=== PATIENT | male | born 1980 | race Caucasian/White ===

== ENCOUNTER 2019-08-24 11:12 | Outpatient (CLI) | payer OTHER, SELFPAY ==
[2019-08-24 11:52] LABS: Basophils Percent Auto 0.9 % (0.2-1.2); Eosinophils Absolute Auto 0.2 K/mm3 (0-0.3); Eosinophils Percent Auto 4.7 % (0-4.4); Hematocrit 44.6 % (42.0-52.0); Hemoglobin 15.1 g/dL (14.0-18.0); Immature Granulocyte Absolute 0.02 K/mm3 (0.00-0.031); Immature Granulocyte Percent A 0.5 % (0-0.5); Lymphocytes Absolute Auto 1.29 K/mm3 (0.9-3.2); Lymphocytes Percent Auto 30.3 % (18.3-44.2); Mean Corpuscular HGB Conc 33.9 g/dl (32-36); Mean Corpuscular Hemoglobin 31.2 pg (26-34); Mean Corpuscular Volume 92.1 fl (80-100); Mean Platelet Volume 10.2 fl (7.4-10.4); Monocytes Absolute Auto 0.3 K/mm3 (0.1-0.6); Monocytes Percent Auto 7.5 % (2.6-8.5); Neutrophils Absolute Auto 2.4 K/mm3 (1.3-6.7); Neutrophils Percent Auto 56.1 % (45.5-73.1); Platelet Count Result 217 k/mm3 (150-375); Red Blood Count 4.84 M/mm3 (4.6-6.20); Red Cell Distribution Width 12.1 % (11.5-14.5); White Blood Count 4.3 K/mm3 (4.5-10.0)
[2019-08-24 12:03] LABS: Alanine Aminotransferase 19 U/L (4-50); Albumin Level 4.8 g/dL (3.5-5.1); Alkaline Phosphatase 42 U/L (38-126); Aspartate Amino Transferase 29 U/L (17-59); Bilirubin,Total 0.6 mg/dL (0.2-1.3); Blood Urea Nitrogen 18 mg/dL (9-20); Calcium 9.6 mg/dL (8.4-10.2); Carbon Dioxide 31 mmol/L (22-30); Chloride 100 mmol/L (98-107); Cholesterol 248 mg/dL (0-200); Estimated Glomerular Filt Rate > 60; Glucose 106 mg/dL (75-110); HDL Direct 63 mg/dL; Potassium 4.5 mmol/L (3.4-5.0); Sodium 137 mmol/L (137-145); Triglycerides 83 mg/dL (<150)
[2019-08-24 12:14] LABS: LDL Cholesterol Direct 154 mg/dL
[2019-08-24 12:21] LABS: Add Urine Microscopic? NO; Appearance Urine Clear (Clear); Bilirubin Urine Negative (Negative); Blood Urine Negative (Negative); Color Urine Colorless (Yellow); Glucose Urine UA Negative (Negative); Ketones Urine Negative (Negative); Leukocyte Esterase Ur Negative LEU/UL (NEGATIVE); Nitrate Urine Negative (Negative); Protein Urine Negative (Negative); Specific Grav Ur 1.005 (1.001-1.035); Urobilinogen Urine Negative mg/dL (<2.0)
[2019-08-30 21:43] LABS: Lactoferrin, Stool Negative (Negative)
== END 2019-08-24 11:13 | disposition home or self-care (01) ==
PROVIDERS: PCP Internal Medicine; Visit Provider Internal Medicine
DX: K52.9 Noninfective gastroenteritis and colitis, unspecified (principal); R10.31 Right lower quadrant pain; Z83.438 Family history of other disorder of lipoprotein metabolism and other lipidemia
CPT/HCPCS: 36415; 80053; 80061; 81003; 83630; 85025; 87015; 87045; 87046; 87177; 87209; 87269; 87272; 87427

== ENCOUNTER 2019-08-28 06:23 | Outpatient (CLI) | payer OTHER, SELFPAY ==
[2019-08-28 18:34] LABS: SARS-CoV-2 RNA PCR Negative
== END 2019-08-28 06:24 | disposition home or self-care (01) ==
LOC: ANHCOVIDDT 06:23
PROVIDERS: PCP Internal Medicine; Visit Provider Internal Medicine Gastroenterology
DX: Z01.818 Encounter for other preprocedural examination (principal); Z11.59 Encounter for screening for other viral diseases
CPT/HCPCS: 87635; C9803; U0003

== ENCOUNTER 2019-08-30 03:06 | Day surgery (SDC) | payer OTHER, SELFPAY ==
[2019-08-27 10:04] VITALS: BMI 28.4
[2019-08-30 08:26] VITALS: BP 143/86; PULSE 76; RESP 16; TEMP 36.7; O2SAT 100
[2019-08-30] MEDS: LACTATED RINGERS 1,000 ML 150 ML IV CONT (08:28)
--- NOTE | 2019-08-30 08:40 | WPDANESEPPF ---
Anes - Initial Pre Proc Eval Procedure: Operation Date: 08/30/19 09:00 Proposed Procedures p Colonoscopy - Nico Roberts MD Date/Time: 08/30/19 08:40 Surgeon: Nico Roberts MD Pre Op Diagnosis: colitis Patient Data Age: 39 Gender: M Height: 5 ft 10 in Weight: 87.2 kg Last Vital Signs Temp 36.7 C 08/30/19 08:26 Pulse 76 08/30/19 08:26 Resp 16 08/30/19 08:26 BP 143/86 H 08/30/19 08:26 Pulse Ox 100 08/30/19 08:26 Allergies Allergy/AdvReac Type Severity Reaction Status Date / Time No Known Allergies Allergy Other Uncoded 08/30/19 08:25 Home Medications Medication Instructions Recorded Confirmed Type albuterol sulfate 90 mcg/actuation 1 puff INHALATION Q4H PRN 08/21/19 08/27/19 History aerosol inhaler Patient hx anesthesia problems: none Family hx anesthesia problems: none PMFSH Past Medical History Medical History Allergies Asthma Crohn's colitis Family History Family History Mother High cholesterol Graves disease Father High cholesterol Grandparent Family history of ovarian cancer Parkinsons disease Cancer High cholesterol Heart attack Social History Social History Smoking status: Former smoker Alcohol intake: current Anes - Eval Final PreProcedure Day of Procedure 08/30/19 08:40 Patient weight: normal Heart: regular rate and rhythm Lungs: clear to auscultation Airway: Mallampati scale class II Neurological: alert and oriented Last oral intake: >/= 8 hours ASA classification: II Emergent: no Anesthetic plan: proceed Anesthesia type and monitoring: general GIVS and standard monitoring Informed Consent: The patient's anesthetic plan and its attendant risks and benefits were discussed with the patient/family/POA. Questions were solicited and answers provided to the satisfaction of the patient/family/POA.
--- NOTE | 2019-08-30 08:53 | P.HP_ITS ---
History of Present Illness History of Present Illness Consent: Risks, benefits, and alternatives have been discussed and questions answered. Patient agrees to proceed with procedure. Chief complaint: colitis Narrative: Ja Cook is a 39 year old W male referred for colonoscopy for evaluation of change in bowel pattern. Patient states he had acute episode of abdominal pain and diarrhea in January of 2019. Patient was seen emergency room stool E had colitis which treated with antibiotics and his symptoms pretty well resolved but he does have persistent soft loose stools 1 per day and minimal right lower quadrant abdominal pain. No fever chills or sweats. He cannot identify any predisposing event in January. No family history of inflammatory bowel disease. He has had no weight loss no rectal bleeding. [facility] Past Medical History Medical History Allergies Asthma Crohn's colitis Family History Family History Mother High cholesterol Graves disease Father High cholesterol Grandparent Family history of ovarian cancer Parkinsons disease Cancer High cholesterol Heart attack Social History Social History Smoking status: Former smoker Alcohol intake: current Meds Home Medications and Allergies Home Medications Medication Instructions Recorded Confirmed Type albuterol sulfate 90 mcg/actuation 1 puff INHALATION Q4H PRN 08/21/19 08/27/19 History aerosol inhaler Allergies Allergy/AdvReac Type Severity Reaction Status Date / Time No Known Allergies Allergy Other Uncoded 08/30/19 08:25 Vital Signs Vital Signs - 24 hr 08/30/19 08:26 Temperature 36.7 C Pulse Rate 76 Respiratory Rate 16 Blood Pressure 143/86 H Pulse Oximetry 100 Exam Const: Orientation/consciousness: patient oriented x3 Resp: Auscultation: clear to auscultation bilaterally Cardio: Rate: regular rate Rhythm: regular rhythm Heart sounds: no murmurs GI: GI Palp: Yes Soft to palpation, No Tenderness to palpation present (GI), Yes No hepatosplenomegaly present and No Palpable mass present Auscultation: normal bowel sounds Neuro: General: patient oriented x3 and no focal motor deficits Extrem: General: no pedal edema Assessment and Plan Additional Plan Colonoscopy for evaluation of change in bowel pattern and abnormal CT scan in January.
[2019-08-30 09:47] VITALS: BP 106/62; PULSE 65; RESP 16; O2SAT 97
[2019-08-30 09:57] VITALS: BP 103/59; PULSE 64; RESP 16; O2SAT 97
[2019-08-30 10:07] VITALS: BP 119/76; PULSE 61; RESP 16; O2SAT 97
== END 2019-08-30 10:25 | disposition home or self-care (01) ==
PROVIDERS: PCP Internal Medicine; Visit Provider Internal Medicine Gastroenterology
PROC: 0DJD8ZZ Inspection of Lower Intestinal Tract, Via Natural or Artificial Opening Endoscopic (ICD-10-PCS; CPT 45378; principal; 2019-08-30 09:00)
DX: R19.4 Change in bowel habit (principal); R93.3 Abnormal findings on diagnostic imaging of other parts of digestive tract; J45.909 Unspecified asthma, uncomplicated; Z87.891 Personal history of nicotine dependence
CPT/HCPCS: 45380; 88305; J2704; J7120

== ENCOUNTER → 2020-12-02 12:44 | Outpatient (CLI) | payer OTHER, SELFPAY ==
--- NOTE | ~2020-12-02 | XR_ITS ---
EXAMINATION: XR UGIAC wo kub DATE: 12/02/2020 14:19 INDICATION: Epigastric abdominal pain. TECHNIQUE: The patient drank thick barium, gas-producing crystals, and thin barium. Fluoroscopy of th e esophagus, stomach, and proximal small bowel was performed. Fluoroscopy exposure time was 0.5 minut es. The total number of images was 244. Total dose-area product was 1.156 Gy-cm^2. COMPARISON: CT abdomen and pelvis 01/23/2019 FINDINGS: There is no mass or stricture of the esophagus. Esophageal motility is normal. There is no hiatal hernia. There was no gastroesophageal reflux with provocative maneuvers. The stomach and proxi mal small bowel show normal folding patterns. IMPRESSION: 1. Normal upper gastrointestinal series. Reviewed, dictated and finalized at location B.
--- NOTE | ~2020-12-02 | US_ITS ---
US abdomen complete EXAMINATION: US Abdomen Complete INDICATION: Epigastric pain PROCEDURE: Realtime High Resolution abdomen ultrasound. COMPARISON: No prior studies for comparison FINDINGS: Gallbladder within normal limits. No gallstones, pericholecystic fluid, gallbladder wall t hickening or biliary dilatation. Common bile duct measures 3 mm. Liver echotexture within normal limits without focal mass. Pancreas within normal limits. Pancreati c tail is obscured by bowel gas. Spleen is unremarkeable. Renal echotexture is within normal limits bilaterally without hydronephrosis, contour deforming mass or renal stone. Right kidney measures 11.5 cm. Left kidney measures 11.2 cm. Visualized aspects of the aorta and IVC are within normal limits. Portal vein is patent. No sonograph ic Swanson's sign indicated by the technologist. IMPRESSION: 1: Normal abdominal ultrasound. Reviewed, dictated and finalized at location A.
== END ==
PROVIDERS: PCP Physician Assistant; Visit Provider Physician Assistant
DX: R10.13 Epigastric pain (principal)
CPT/HCPCS: 74246; 76700

== ENCOUNTER 2021-02-11 01:29 | Day surgery (SDC) | payer OTHER, SELFPAY ==
[2021-01-26 16:32] VITALS: BMI 26.2
--- NOTE | 2021-02-10 09:49 | WPDANESEPPF ---
Anes - Initial Pre Proc Eval Procedure: Operation Date: 02/11/21 07:30 Proposed Procedures p Esophagogastroduodenoscopy - Micah Valdez MD Date/Time: 02/10/21 09:49 Surgeon: Micah Valdez MD Pre Op Diagnosis: epigastric pain Patient Data Age: 40 Gender: M Height: 1.75 m Weight: 80.5 kg Allergies Allergy/AdvReac Type Severity Reaction Status Date / Time No Known Allergies Allergy Other Uncoded 02/11/21 06:23 Home Medications Medication Instructions Recorded Confirmed Type albuterol sulfate 90 mcg/actuation 1 puff INHALATION Q4H PRN 08/21/19 02/11/21 History aerosol inhaler Patient hx anesthesia problems: none Family hx anesthesia problems: none Results Review: All pre-operative results and documents have been reviewed as part of the pre-operative evaluation. [facility] Past Medical History Medical History (Updated 02/10/21 @ 09:50 by Mitchell Reeves DO) Allergies Asthma GERD (gastroesophageal reflux disease) History of tuberculosis medication 2006 Hyperlipidemia Family History Family History Mother High cholesterol Graves disease Father High cholesterol Grandparent Family history of ovarian cancer Parkinsons disease Cancer High cholesterol Heart attack Social History Social History (Updated 01/02/20 @ 15:03 by Kyleigh Gold CMA) Smoking packs per day: 1 Smoking cigarettes per day: 20.0 Smoking status: Former smoker Tobacco type: cigarettes Alcohol intake: current Alcohol use details: occasional, not daily Substance use: never Substance use type: does not use Living arrangements: with family Additional living arrangements comments: lives with spouse Spiritual care concerns: No Anes - Eval Final PreProcedure Day of Procedure 02/10/21 09:49 Patient weight: overweight Heart: regular rate and rhythm Lungs: clear to auscultation and normal air movement Airway: Mallampati scale class II Neurological: alert and oriented Last oral intake: >/= 8 hours ASA classification: III Emergent: no Anesthetic plan: proceed Anesthesia type and monitoring: general GIVS and standard monitoring Results Review: All pre-operative results and documents have been reviewed as part of the pre-operative evaluation. Informed Consent: The patient's anesthetic plan and its attendant risks and benefits were discussed with the patient/family/POA. Questions were solicited and answers provided to the satisfaction of the patient/family/POA.
[2021-02-11 06:24] VITALS: BP 125/69; PULSE 64; RESP 18; TEMP 36.2; O2SAT 100
[2021-02-11] MEDS: LACTATED RINGERS 1,000 ML 150 ML IV CONT (06:37)
--- NOTE | 2021-02-11 07:32 | PM.HPGS ---
History of Present Illness History of Present Illness Consent: Risks, benefits, and alternatives have been discussed and questions answered. Patient agrees to proceed with procedure. Chief complaint: epigastric pain Narrative: Ja Cook is a 40 year old male with months of clearing his throat, few times food went down the wrong pipe , also sensation of a knot in throat. Had unremarkable esophagram and ultrasound. Trial of omeprazole for 1.5 month did not help. Review of Systems Constitutional: Constitutional: Denies headache(s) and Denies weakness Eyes: Eyes: Denies blurry vision ENT: Reports Normal hearing present, Denies headache(s) and Denies neck pain Cardiovascular: Cardiovascular: Denies chest pain and Denies dyspnea Respiratory: Respiratory: Denies dyspnea Gastrointestinal: Gastrointestinal: Reports no additional gastrointestinal complaints Genitourinary: Genitourinary: Denies dysuria Musculoskeletal: Musculoskeletal: Denies neck pain Integumentary/Breasts: Skin/Breast: Denies dry skin Neurologic: Reports Normal hearing present, Denies headache(s) and Denies weakness Psychiatric: Psychiatric: Denies anxiety Endocrine: Endocrine: Denies change in body appearance Hematologic/Lymphatic: Hematologic/Lymphatic: Denies easy bleeding Allergic/Immunologic: Allergic/Immunologic: Denies urticaria PMFSH Past Medical History Medical History (Updated 02/11/21 @ 07:33 by Micah Valdez MD) Allergies Asthma Chronic throat clearing GERD (gastroesophageal reflux disease) History of tuberculosis medication 2006 Hyperlipidemia Family History Family History Mother High cholesterol Graves disease Father High cholesterol Grandparent Family history of ovarian cancer Parkinsons disease Cancer High cholesterol Heart attack Social History Social History (Updated 01/02/20 @ 15:03 by Kyleigh Gold CMA) Smoking packs per day: 1 Smoking cigarettes per day: 20.0 Smoking status: Former smoker Tobacco type: cigarettes Alcohol intake: current Alcohol use details: occasional, not daily Substance use: never Substance use type: does not use Living arrangements: with family Additional living arrangements comments: lives with spouse Spiritual care concerns: No Meds Home Medications and Allergies Home Medications Medication Instructions Recorded Confirmed Type albuterol sulfate 90 mcg/actuation 1 puff INHALATION Q4H PRN 08/21/19 02/11/21 History aerosol inhaler Allergies Allergy/AdvReac Type Severity Reaction Status Date / Time No Known Allergies Allergy Other Uncoded 02/11/21 06:23 Vital Signs Vital Signs - 24 hr 02/11/21 06:24 Temperature 97.2 F L Pulse Rate 64 Respiratory Rate 18 Blood Pressure 125/69 Pulse Oximetry 100 Exam Const: General: comfortable and no acute distress HENMT: General nose exam: Normal nares present Eyes: General: appearance normal, both eyes and all related structures Neck: Neck: no JVD Resp: Auscultation: clear to auscultation bilaterally Cardio: Rate: regular rate Rhythm: regular rhythm GI: Inspection: non-distended GI Palp: Yes Soft to palpation Skin: General skin exam: normal color Neuro: General: gait normal Speech: normal speech Extrem: General: normal to inspection Psych: Mental Status: mental status grossly normal Assessment and Plan Assessment and plan (1) Chronic throat clearing: Code(s): R68.89 - Other general symptoms and signs Status: Acute Assessment and Plan: egd with bx
[2021-02-11 07:44] VITALS: BP 88/50; PULSE 60; RESP 20; O2SAT 98
[2021-02-11 07:54] VITALS: BP 92/51; PULSE 53; RESP 18; O2SAT 98
[2021-02-11 08:04] VITALS: BP 107/63; PULSE 56; RESP 20; O2SAT 98
== END 2021-02-11 08:14 | disposition home or self-care (01) ==
PROVIDERS: PCP Physician Assistant; Visit Provider Internal Medicine Gastroenterology
PROC: 0DJ08ZZ Inspection of Upper Intestinal Tract, Via Natural or Artificial Opening Endoscopic (ICD-10-PCS; CPT 43235; principal; 2021-02-11 07:30)
DX: K30 Functional dyspepsia (principal); R68.89 Other general symptoms and signs; K20.80 Other esophagitis without bleeding; Z87.19 Personal history of other diseases of the digestive system; J45.909 Unspecified asthma, uncomplicated; E78.5 Hyperlipidemia, unspecified; Z86.11 Personal history of tuberculosis; Z87.891 Personal history of nicotine dependence; Z79.51 Long term (current) use of inhaled steroids
CPT/HCPCS: 43239; 88305; J2001; J2704; J7120